=== PATIENT | male | born 1955 | race Caucasian/White ===

== ENCOUNTER 2019-09-15 18:40 | Observation (INO) | payer OTHER ==
[2019-09-15] MEDS ORDERED: SODIUM CHLORIDE 0.9% 1000ML 1,000 ML IVS ONE ×2 (18:54→20:53)
[2019-09-15] MEDS ORDERED: PROMETHAZINE HCL INJ 25 MG in SODIUM CHLORIDE 0.9% 50ML 50 ML IVPB ONE (19:03)
[2019-09-15] MEDS ORDERED: methylPREDNISolone SODIUM SUC 125 MG/2 ML VIAL IV ONE (19:03)
[2019-09-15] MEDS ORDERED: PANTOPRAZOLE SODIUM IV 40 MG VIAL IV ONE (19:04)
[2019-09-15] MEDS ORDERED: PROMETHAZINE HCL INJ 25 MG/ML VIAL ONE (19:17)
[2019-09-15] MEDS ORDERED: SODIUM CHLORIDE 0.9% 50ML 50 ML ONE (19:17)
[2019-09-15] MEDS ORDERED: SUCRALFATE 1 GM/10 ML 1 GM UD PO ONE (20:12)
[2019-09-15] MEDS ORDERED: ALUMINUM & MAGNESIUM HYDROXIDE 30 ML UD PO ONE (20:12)
--- NOTE | 2019-09-15 20:14 | RAD ---
EXAM DESCRIPTION: Abdomen Flat Upright CLINICAL HISTORY: 64 years Male ,lung cancer, [place] COMPARISON: None. TECHNIQUE: Single view of the abdomen was provided.. FINDINGS:No free air. Moderate fecal material in the colon. No dilated loops of bowel to suggest obstruction. No abnormal calcifications noted. IMPRESSION: No acute plain film abnormality is identified. Electronically signed by: Jovana Olguin MD 09/15/2019 8:13 PM JACK PRIZER
--- NOTE | 2019-09-15 20:16 | RAD ---
EXAM DESCRIPTION: Chest,2 Views CLINICAL HISTORY: 64 years Male lung cancer, [place] COMPARISON: 09/10/2012 FINDINGS: Heart size appears within normal limits. Mildly prominent pulmonary arteries. Prominent soft tissue in the right inferior hilar region which appears similar to the previous exam. Small focus of calcification in the lateral left lung base. PICC line on the right with the tip in the SVC. Prominent costochondral cartilage calcification bilaterally. IMPRESSION: Prominent right hilum which appears unchanged when compared to the examination from 2012 No acute infiltrate noted Electronically signed by: Jovana Olguin MD 09/15/2019 8:14 PM TITLE CLOSER
[2019-09-15] MEDS ORDERED: ONDANSETRON INJ 4 MG/2 ML VIAL IV ONE (20:54)
--- NOTE | 2019-09-15 21:06 | ED.PDOC ---
History of Present Illness - General Chief Complaint: GI Problem Stated Complaint: N/V weakeness poss r/t chemo Time Seen by Provider: 09/15/19 18:42 Source: patient Exam Limitations: no limitations - History of Present Illness Initial Comments: The patient is a 64-year-old male presenting to the emergency room secondary to nausea and vomiting since he completed his last round of chemotherapy around Monday. He has had essentially no food that he has been able to hold down some liquids. He has had a history of significant gastritis. He does normally take famotidine. He is supposed to be taking prednisone but he reports that he has not taken any since he got done with chemotherapy. He is uncertain what the 3 drug therapy was that he had. No fevers. No cough. No sore throat. No new shortness of breath. No real focal abdominal pain. Just cramping. He has been passing gas and a little bit of stool. He is a type II diabetic but not insulin-dependent. He is feeling weak and tired and dehydrated. He does get dizzy with standing.he does take eliquis for a pulmonary embolus. he has vomited a small amount of brown material. No leslie blood.the patient has not vomited since his arrival here. Timing/Duration: other - 4 days Severity: moderate Improving Factors: nothing Worsening Factors: immobilization Associated Symptoms: loss of appetite, malaise, nausea/vomiting, weakness Allergies/Adverse Reactions: Allergies Codeine Allergy (Verified 09/11/12 07:11) Home Medications: Ambulatory Orders Metformin HCl 1,000 mg PO BID 09/11/12 Albuterol Sulfate [Albuterol Sulfate Hfa] 1 puff INH Q4HR PRN 09/15/19 Apixaban [Eliquis Starter Pack] 5 mg PO DAILY 09/15/19 Atorvastatin Calcium 40 mg PO DAILY 09/15/19 Famotidine 20 mg PO BID 09/15/19 Gabapentin [Neurontin] 300 mg PO TID 09/15/19 Guaifenesin [Mucus Relief] 400 mg PO TID 09/15/19 Lisinopril 5 mg PO DAILY 09/15/19 Olanzapine 5 mg PO BEDTIME PRN 09/15/19 Sertraline HCl [Zoloft] 100 mg PO DAILY 09/15/19 Tamsulosin [Flomax] 0.4 mg PO QD 09/15/19 Tramadol HCl 50 mg PO Q6HR PRN 09/15/19 Review of Systems - Review of Systems Constitutional: States: malaise, weakness EENTM: States: no symptoms reported Respiratory: States: no symptoms reported Cardiology: States: no symptoms reported Gastrointestinal/Abdominal: States: nausea, vomiting Genitourinary: States: no symptoms reported Musculoskeletal: States: no symptoms reported Skin: States: no symptoms reported Neurological: States: no symptoms reported Endocrine: States: increased thirst Hematologic/Lymphatic: States: no symptoms reported All other Systems: No Change from Baseline Past Medical History (General) - Patient Medical History Hx Stroke: No Hx of COPD: Yes Hx Cardiac Disorders: No Hx Congestive Heart Failure: No Hx Hypertension: No Hx Diabetes: No Hx Cancer: Yes - Stage IV lung Hx MRSA: No Surgical History: other - Vaccination History Hx Influenza Vaccination: Yes Hx Pneumococcal Vaccination: No - Social History Hx Tobacco Use: Yes Hx Alcohol Use: No Hx Substance Use: No Hx Substance Use Treatment: No Hx Depression: No - Female History Patient is a Female of Child Bearing Age (10 -59 yrs old): No Patient : No Family Medical History - Family History Mother Family History: Unknown Living Status: Unknown Physical Exam - Physical Exam General Appearance: Alert, Frail, Ill Appearing Eye Exam: bilateral normal Ears, Nose, Throat: hearing grossly normal, normal pharynx, other - mucous membranes are fairly dry Neck: full range of motion, supple Respiratory: lungs clear, normal breath sounds, no respiratory distress, no accessory muscle use Cardiovascular/Chest: normal peripheral pulses, regular rate, rhythm, no edema Peripheral Pulses: radial,right: 2+, radial,left: 2+ Gastrointestinal/Abdominal: non tender - no rebound or peritoneal signs. 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, alert, normal mood/affect, oriented x 3 Skin Exam: normal color Comments: Vital Signs - 24 hr 09/15/19 09/15/19 09/15/19 18:40 18:41 19:31 Temperature 97.5 F L Pulse Rate [R 94 H 94 H 92 H finger] Respiratory 22 22 Rate Blood Pressure 139/92 135/82 [L arm] O2 Sat by Pulse 97 Oximetry 09/15/19 09/15/19 20:00 20:30 Temperature Pulse Rate [R 84 78 finger] Respiratory 18 Rate Blood Pressure 139/80 139/87 [L arm] O2 Sat by Pulse 97 94 L Oximetry Progress - Progress Progress: 09/15/19 21:09 the patient's 64-year-old male presenting to the emergency room secondary to nausea and vomiting since completing his last chemotherapy round on Monday. The patient was apparently supposed to be taking prednisone but has not been doing that. He was given a dose of Solu-Medrol here. He is a diabetic so his blood sugars will need to be watched. The patient does have some significant dehydration and has been given a liter of IV fluids and has been started on maintenance fluids. Electrolytes look to be in good order at this point in time. The patient has been started on GI medications including Maalox, Carafate, Protonix, Phenergan, Zofran. He will need to be continued on several of these to allow for improvement of what is no doubt significant stomach and duodenal inflammation at this time. The patient does take Eliquis for a pulmonary embolus which will have to be continued. no evidence of leslie bleeding at this time however this may make calming the stomach down more difficult. the patient appears to be tolerating small fluid challenges well at this time. Admit for continued care. - Results/Orders Results/Orders: 09/15/19 19:02 Telemetry .CONTINUOUS UA [URINALYSIS] Stat 09/15/19 19:03 EKG Assessment ONCE EKG shows normal sinus rhythm at 82 bpm. Poor R progression in anterior leads. No definitive ST segment or T-wave changes indicative of acute ischemia. Mild right axis deviation. Normal QT interval. Chest x-ray shows chronic changes. No overt pneumonia. No pneumothorax. No fluid overload. Two-view abdomen shows moderate amount of stool in colon. No obstruction. No obvious perforation. Laboratory Results - last 24 hr 09/15/19 09/15/19 09/15/19 19:18 19:18 19:18 WBC 8.8 RBC 4.79 Hgb 13.8 L Hct 41.6 L MCV 86.7 MCH 28.8 MCHC 33.3 RDW 16.8 H Plt Count 147 MPV 7.5 Absolute Neuts (auto) 7.00 H Absolute Lymphs (auto) 1.50 Absolute Monos (auto) 0.00 L Absolute Eos (auto) 0.10 Absolute Basos (auto) 0.10 Neutrophils % 79.4 H Lymphocytes % 17.5 L Monocytes % 0.4 L Eosinophils % 1.7 Basophils % 1.0 PT 9.9 INR 1.00 PTT (SP) 19.7 L Sodium 137 Potassium 4.3 Chloride 102 Carbon Dioxide 24 Anion Gap 15.3 BUN 43 H Creatinine 1.25 BUN/Creatinine Ratio 34.4 H Random Glucose 210 H Serum Osmolality 290.8 Lactic Acid Calcium 9.6 Magnesium 2.1 Total Bilirubin 0.8 AST 14 ALT 11 Alkaline Phosphatase 68 Creatine Kinase 26 L CK-MB (CK-2) 0.7 CK-MB (CK-2) % Not Reportable Troponin I < 0.02 B-Natriuretic Peptide 8.7 Serum Total Protein 7.3 Albumin 3.7 Globulin 3.6 H Albumin/Globulin Ratio 1.0 L Amylase 75 Lipase 32 09/15/19 19:18 WBC RBC Hgb Hct MCV MCH MCHC RDW Plt Count MPV Absolute Neuts (auto) Absolute Lymphs (auto) Absolute Monos (auto) Absolute Eos (auto) Absolute Basos (auto) Neutrophils % Lymphocytes % Monocytes % Eosinophils % Basophils % PT INR PTT (SP) Sodium Potassium Chloride Carbon Dioxide Anion Gap BUN Creatinine BUN/Creatinine Ratio Random Glucose Serum Osmolality Lactic Acid 1.0 Calcium Magnesium Total Bilirubin AST ALT Alkaline Phosphatase Creatine Kinase CK-MB (CK-2) CK-MB (CK-2) % Troponin I B-Natriuretic Peptide Serum Total Protein Albumin Globulin Albumin/Globulin Ratio Amylase Lipase Departure - Departure Clinical Impression: Dehydration Chemotherapy adverse reaction Qualifiers: Encounter type: initial encounter Qualified Code(s): T45.1X5A - Adverse effect of antineoplastic and immunosuppressive drugs, initial encounter Gastritis Qualifiers: Gastritis type: unspecified gastritis Chronicity: acute Gastritis bleeding: without bleeding Qualified Code(s): K29.00 - Acute gastritis without bleeding Disposition: Admit Patient Departure Forms: ED Discharge - Pt. Copy, Patient Portal Self Enrollment Referrals: Twin Gay MD [Primary Care Provider] - 1-2 Weeks Home Medications: Ambulatory Orders Metformin HCl 1,000 mg PO BID 09/11/12 Albuterol Sulfate [Albuterol Sulfate Hfa] 1 puff INH Q4HR PRN 09/15/19 Apixaban [Eliquis Starter Pack] 5 mg PO DAILY 09/15/19 Atorvastatin Calcium 40 mg PO DAILY 09/15/19 Famotidine 20 mg PO BID 09/15/19 Gabapentin [Neurontin] 300 mg PO TID 09/15/19 Guaifenesin [Mucus Relief] 400 mg PO TID 09/15/19 Lisinopril 5 mg PO DAILY 09/15/19 Olanzapine 5 mg PO BEDTIME PRN 09/15/19 Sertraline HCl [Zoloft] 100 mg PO DAILY 09/15/19 Tamsulosin [Flomax] 0.4 mg PO QD 09/15/19 Tramadol HCl 50 mg PO Q6HR PRN 09/15/19 Decision To Admit - Decistion To Admit Decision to Admit Reason: Medical Nature Decision to Admit Date: 09/15/19 Decision to Admit Time: 21:13
[2019-09-15] MEDS ORDERED: FOLIC ACID INJ 5 MG/ML VIAL IV ONE (21:16)
--- NOTE | 2019-09-15 21:16 | HP ---
SUPERVISING PHYSICIAN: Vick Barnes MD CHIEF COMPLAINT: Nausea and weakness due to chemotherapy. HISTORY OF PRESENT ILLNESS: Mr. Harper is a 64-year-old male patient who presented to the Emergency Room with a history of Stage 4 small cell lung cancer with persistent nausea and vomiting since last Monday after finishing a round of chemo. He endorses that he has not been able to hold any oral intake down other than some small doses of liquids. He does have a significant history of gastritis and has been taking famotidine. He is also on prednisone, but reports he has not been able to keep any down since chemotherapy. He is unsure of his actual chemo drugs, but notes he is on three different chemo medications. He denies any fevers, cough, sore throat, shortness of breath or abdominal pain. He is a type 2 diabetic, non-insulin dependent. He notes he is feeling weak, tired and very dehydrated. He does get dizzy when he stands up. He is on Eliquis for pulmonary embolisms and has had frequent vomiting, but no leslie blood. Laboratory studies show his admission white count is 8,800 with hemoglobin 13.8, hematocrit 41.6, platelet count 147,000. Differential shows a left shift. Coagulation studies show PT 9.9, PTT 19.7 but he is on Eliquis. His initial chemistries on admission showed normal electrolytes with BUN 43, creatinine 1.25, glucose 210, serum osmolality 290, lactic acid 1, calcium 9.6. Liver functions within normal limits. Troponin and BNP were within normal limits. Amylase and lipase within normal limits. Urinalysis showed just 500 glucose, otherwise within normal limits. Microbiology showed influenza A and B by PCR was negative. Blood cultures negative. Initial vital signs in the Emergency Room showed he was slightly hypertensive with blood pressure 139/92, heart rate 94. He was afebrile at 97.5, O2 saturation 97%. Admission weight was 78 kg. In the Emergency Room, he was given treatment with fluids, antiemetics and a dose of Solu-Medrol 60 mg, IV Protonix and Carafate. He was placed in observation for severe dehydration and unable to hold any oral intake down due to chemotherapy. PAST MEDICAL HISTORY: 1. 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 2. Multiple pulmonary embolisms in the right lung secondary to #1. 3. Diabetes mellitus on oral therapy. 4. Gastroesophageal reflux disease with gastritis on famotidine. 5. Benign prostatic hypertrophy on Flomax. PAST SURGICAL HISTORY: 1. 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 MEDICATIONS: 1. Zoloft 100 mg daily. 2. Eliquis 5 mg daily. 3. Metformin 1000 mg b.i.d. 4. Neurontin 300 mg t.i.d. 5. Famotidine 20 mg b.i.d. 6. Atorvastatin 40 mg daily. 7. Olanzapine 5 mg at bedtime as needed. 8. Lisinopril 5 mg daily. 9. Guaifenesin 400 mg t.i.d. 10. Tramadol 50 mg q.6h. as needed. 11. Flomax 0.4 mg. 12. Albuterol handheld inhaler as needed q.4h. ALLERGIES: CODEINE. FAMILY HISTORY: Mother at age 54 with complications from diabetes. Father at age 63 with prostate cancer. He has a twin sister at age 38 with breast cancer. He has one brother at age 50 with kidney sister. Another sister at age 62 with a brain aneurysm. He has three children that are all healthy. SOCIAL HISTORY: The patient was a tobacco smoker in the form of cigarettes smoking 1-1/2 packs a day for 40 years. He does not drink alcohol. 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 He lives in [place] and is . REVIEW OF SYSTEMS: CONSTITUTIONAL: Positive for general malaise, weakness. Denies fevers, rigors or chills. No reported significant weight loss. HEENT: Negative for sore throats, headaches, earaches, nasal congestion, vision changes. RESPIRATORY: Denies coughing, wheezing, shortness of breath. CARDIOVASCULAR: Negative for chest pain, palpitations or syncopal episodes. GASTROINTESTINAL: Denies any abdominal pain, but positive for nausea and vomiting. Negative for diarrhea. GENITOURINARY: Negative for dysuria, hematuria, polyuria. MUSCULOSKELETAL: Denies arthralgias or joint swelling. SKIN: Negative for lesions, rashes, moles or unexplained changes. NEUROLOGIC: Negative for headaches, vision changes, ataxia, seizures or other focal neurological deficits. HEMATOLOGIC: Denies easy bruising, unexplained bleeding or transfusion reaction. PHYSICAL EXAMINATION: VITAL SIGNS: Temperature 97.5. Pulse 94. Blood pressure 139/92. Respirations 20. Saturation 97% on room air. Admission weight 78 kg. GENERAL: The patient does appear generally unwell, tired, frail. He is alert and appears to be in no acute distress. HEENT: Tympanic membranes clear bilaterally. Oropharynx is pink with significantly dry murmurs. NECK: Supple, nontender with full range of motion. No jugular venous distention noted. RESPIRATORY: Lungs clear to auscultation bilaterally without any obvious rhonchi, wheezes or rales. CARDIOVASCULAR: Regular rate and rhythm without any appreciable murmurs, gallops, or rubs. ABDOMEN: Soft, nontender. No rebound. No peritoneal signs. Positive bowel sounds. RECTAL: Deferred. EXTREMITIES: There is no cyanosis, clubbing or edema. NEUROLOGIC: The patient is alert and oriented times three. Cranial nerves II- XII are grossly intact. Facial features are symmetrical. Extraocular movements are within normal limits. There is no nystagmus noted. LABORATORY: CBC showed white count 8,800, hemoglobin 13.8, hematocrit 41.6, platelet count 147,000. Differential does show a left shift. Chemistries showed normal electrolytes. Initial creatinine was 1.25, BUN 43, blood sugar 210, calcium 9.6, magnesium 2.1. Liver functions all within normal limits. BNP and troponin were normal as well as amylase and lipase. Urinalysis shows 500 glucose. MICROBIOLOGY: Influenza A and B negative by PCR. Blood cultures pending. RADIOLOGY: Abdominal x-ray in the Emergency Room per radiologic interpretation showed no acute abnormalities on plain film. Chest x-ray per radiologic interpretation showed prominent right hilum which appears unchanged when compared to exam from 2013. No acute infiltrate was noted. ASSESSMENT: 1. Severe dehydration with nausea and vomiting secondary to chemotherapy. 2. 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 3. Pulmonary embolism, right lung, secondary to #2. 4. Diabetes mellitus on oral therapy. 5. History of gastritis and gastroesophageal reflux disease. PLAN: Mr. Harper will be placed in observation to assist with hydration therapy. The plan will be hopefully to be able to discharge within the next 24 or 48 hours. He will need to at least have adequate oral intake to stay hydrated in the form of liquids and nutrition to maintain stable blood sugars. We will provide Phenergan and Zofran as needed for antiemetics. I will give him a bolus of half normal saline followed MVI bag and then will reassess labs in the morning. He will be on sliding scale per insulin protocol. He is on DVT prophylaxis already with Eliquis. I anticipate his length of stay to be at least one to two days and will hopefully be able to discharge tomorrow. Until then, we will continue to monitor and treat as needed. #[id number] MTDD
[2019-09-15] MEDS ORDERED: SODIUM CHLORIDE 0.9% (FLUSH) 10 ML SYG IV PRN (21:56)
[2019-09-15] MEDS ORDERED: IV SET AND CAP CHANGE INJ INJ SCH (22:00)
[2019-09-16] MEDS: SODIUM CHLORIDE 0.45% 1000ML 1,000 ML IVS PRN ×2 (02:01→10:27)
[2019-09-16] MEDS ORDERED: PROMETHAZINE HCL INJ 25 MG/ML VIAL ONE ×3 (04:22→19:41)
[2019-09-16] MEDS ORDERED: SODIUM CHLORIDE 0.9% 50ML 50 ML ONE ×3 (04:22→19:41)
[2019-09-16] MEDS: PROMETHAZINE HCL INJ 25 MG in SODIUM CHLORIDE 0.9% 50ML 50 ML IVPB PRN ×3 (04:26→19:44)
[2019-09-16] MEDS ORDERED: SERTRALINE HCL 50 MG TAB ONE (08:27)
[2019-09-16] MEDS: ONDANSETRON INJ 4 MG/2 ML VIAL IV PRN ×2 (08:59→17:40)
[2019-09-16] MEDS: SODIUM CHLORIDE 0.9% (FLUSH) 10 ML SYG IV SCH ×2 (09:00→20:52)
[2019-09-16] MEDS: guaiFENesin ER TAB 600 MG TAB PO SCH ×2 (09:10→20:52)
[2019-09-16] MEDS: APIXABAN 5 MG TAB PO SCH (09:11)
[2019-09-16] MEDS: GABAPENTIN 300 MG CAP PO SCH ×3 (09:11→20:52)
[2019-09-16] MEDS: FAMOTIDINE 20 MG TAB PO SCH ×2 (09:11→20:52)
[2019-09-16] MEDS: SERTRALINE HCL 50 MG TAB PO SCH (09:11)
[2019-09-16] MEDS: LISINOPRIL 5 MG TAB PO SCH (09:11)
[2019-09-16] MEDS: metFORMIN HCL 500 MG TAB PO SCH ×2 (09:11→17:37)
[2019-09-16] MEDS: TAMSULOSIN 0.4 MG CAP PO SCH (10:05)
[2019-09-16] MEDS ORDERED: GLUCAGON INJ 1 MG VIAL SUBCU PRN (11:01)
[2019-09-16] MEDS ORDERED: DEXTROSE 10% 500ML IVPB PRN (11:01)
[2019-09-16] MEDS ORDERED: SODIUM CHLORIDE 0.9% 1000ML 1,000 ML ONE (11:26)
[2019-09-16] MEDS ORDERED: MULTIPLE VITAMIN 10 ML VIAL ONE (11:27)
[2019-09-16] MEDS: MULTIPLE VITAMIN INJ 10 ML, FOLIC ACID INJ 1 MG in SODIUM CHLORIDE 0.9% 1000ML 1,000 ML IVS SCH (11:37)
[2019-09-16] MEDS: INSULIN LISPRO 100 UNITS/ML PEN SUBCU SCH ×3 (11:45→20:50)
[2019-09-16] MEDS: ALBUTEROL SULFATE 2.5 MG/3 ML VIAL NEB SCH ×3 (12:33→20:02)
[2019-09-16] MEDS ORDERED: LACTATED RINGERS 1,000 ML IVS ONE (17:13)
[2019-09-16] MEDS ORDERED: HYDROmorphone HCL INJ 2 MG/ML VIAL IV ONE (18:31)
[2019-09-16] MEDS ORDERED: ALUM & MAG HYDROX-SIMETHICONE 30 ML, LIDOCAINE VISCOUS 2% 15 ML PO ONE ×2 (18:31)
[2019-09-16] MEDS ORDERED: KCL 20 MEQ/NS 1,000 ML IVS PRN (18:31)
[2019-09-16] MEDS ORDERED: ALUMINUM & MAGNESIUM HYDROXIDE 30 ML UD ONE (19:02)
[2019-09-16] MEDS ORDERED: LIDOCAINE HCL 2% (MOUTH-THROAT) 15 ML UD ONE (19:03)
[2019-09-16] MEDS ORDERED: KCL 20MEQ/D5NS 1,000 ML IVS ONE (20:45)
[2019-09-16] MEDS: KCL 20MEQ/D5NS 1,000 ML IVS PRN (20:50)
[2019-09-16] MEDS ORDERED: ATORVASTATIN 20 MG TAB PO SCH (21:00)
[2019-09-16] MEDS: MORPHINE SULFATE INJ 10 MG/ML VIAL IV PRN (23:32)
[2019-09-17] MEDS: KCL 20MEQ/D5NS 1,000 ML IVS PRN (03:21)
[2019-09-17] MEDS ORDERED: SODIUM CHLORIDE 0.9% 50ML 50 ML ONE (05:35)
[2019-09-17] MEDS ORDERED: PROMETHAZINE HCL INJ 25 MG/ML VIAL ONE (05:35)
[2019-09-17] MEDS: MORPHINE SULFATE INJ 10 MG/ML VIAL IV PRN (05:38)
[2019-09-17] MEDS: PROMETHAZINE HCL INJ 25 MG in SODIUM CHLORIDE 0.9% 50ML 50 ML IVPB PRN (05:39)
[2019-09-17] MEDS: metFORMIN HCL 500 MG TAB PO SCH (07:20)
[2019-09-17] MEDS: ONDANSETRON INJ 4 MG/2 ML VIAL IV PRN (07:20)
[2019-09-17] MEDS: INSULIN LISPRO 100 UNITS/ML PEN SUBCU SCH ×2 (07:20→13:39)
[2019-09-17] MEDS: ALBUTEROL SULFATE 2.5 MG/3 ML VIAL NEB SCH ×2 (07:57→12:38)
[2019-09-17] MEDS: SERTRALINE HCL 50 MG TAB PO SCH (08:08)
[2019-09-17] MEDS: TAMSULOSIN 0.4 MG CAP PO SCH (08:08)
[2019-09-17] MEDS: APIXABAN 5 MG TAB PO SCH (08:08)
[2019-09-17] MEDS: GABAPENTIN 300 MG CAP PO SCH (08:08)
[2019-09-17] MEDS: LISINOPRIL 5 MG TAB PO SCH (08:08)
[2019-09-17] MEDS: guaiFENesin ER TAB 600 MG TAB PO SCH (08:08)
[2019-09-17] MEDS: FAMOTIDINE 20 MG TAB PO SCH (08:08)
[2019-09-17] MEDS: SODIUM CHLORIDE 0.9% (FLUSH) 10 ML SYG IV SCH (08:08)
[2019-09-17] MEDS ORDERED: KETOROLAC TROMETHAMINE INJ 30 MG/ML VIAL IV ONE (09:18)
--- NOTE | 2019-09-17 09:28 | PN ---
SUPERVISING PHYSICIAN: Vick Barnes MD DATE: 09/16/2019 SUBJECTIVE: The patient continues to have nausea with vomiting despite Zofran. We discussed using Phenergan. She is still not able to take any oral hydration. He does not complain of any abdominal pain, chest pain and he has not been febrile. His urine output has not been satisfactory to indicate that he is hydrated at this point. OBJECTIVE: VITAL SIGNS: Temperature 98. Pulse 76. Blood pressure 136/77. Respirations 18. Saturation 79% on room air. GENERAL: The patient does appear unwell, tired and not in any obvious distress. CHEST: Lungs are clear to auscultation. HEART: Regular rate and rhythm. ABDOMEN: Soft, nontender. Positive bowel sounds. EXTREMITIES: No edema. NEUROLOGIC: Alert and oriented times three. LABORATORY: White count 7,300, hemoglobin 11.5, hematocrit 35.0, platelet count 137,000. Differential does show a left shift. Chemistries show sodium 134, potassium 4, BUN 31, creatinine 1.12 after a second liter of fluids. Before that, his creatinine was 1.32 and BUN 40. Blood sugars are fairly stable between 126 and 139. Liver functions continue to be within normal limits. MICROBIOLOGY: Blood cultures remain negative. RADIOLOGY: No additional radiographic studies. ASSESSMENT: 1. Severe dehydration with nausea and vomiting secondary to chemotherapy. 2. 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 3. Pulmonary embolism, right lung, secondary to #2. 4. Diabetes mellitus on oral therapy. 5. History of gastritis and gastroesophageal reflux disease. PLAN: We will continue with current plan of care at this point given that he does have continued nausea and vomiting and is not able to take any hydration therapy orally. I will go ahead and give him a liter of half normal saline bolus and follow up with multivitamin infusion with folic acid at 150 an hour and then we will readdress with BMP and assess his hydration status at that point and address fluids. We will provide Phenergan and Zofran again as needed for any nausea and vomiting and will control pain as needed. He is on a regular diet, but I have encouraged him to start with liquids and advance as tolerated. The hope was to discharge later today, but again he is not able to take any fluids and he is significantly dehydrated. Once he is able to tolerate oral hydration, we will discharge to continue with outpatient management. Until then, we will continue to monitor and treat as needed. #[id number] [facility]
[2019-09-17] MEDS ORDERED: LACTATED RINGERS 1,000 ML ONE (09:53)
[2019-09-17] MEDS ORDERED: LACTATED RINGERS 1,000 ML IVS ONE (09:56)
[2019-09-17] MEDS ORDERED: KCL 20MEQ/D5 1/2NS 0 ML IVS ONE (10:09)
[2019-09-17] MEDS ORDERED: SODIUM CHLORIDE 0.9% 1000ML 1,000 ML ONE (10:16)
[2019-09-17] MEDS ORDERED: MULTIPLE VITAMIN 10 ML VIAL ONE (10:23)
[2019-09-17] MEDS ORDERED: OLANZapine ODT 5 MG TAB PO PRN (10:30)
[2019-09-17] MEDS: MULTIPLE VITAMIN INJ 10 ML, FOLIC ACID INJ 1 MG in SODIUM CHLORIDE 0.9% 1000ML 1,000 ML IVS SCH (10:45)
[2019-09-17 13:51] VITALS: BP 105/64; TEMP 98.9; O2SAT 99
--- NOTE | 2019-09-17 14:55 | DS ---
SUPERVISING PHYSICIAN: Vick Barnes MD ADMISSION DIAGNOSIS: 1. Severe dehydration with nausea and vomiting secondary to chemotherapy. 2. 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 3. Pulmonary embolism, right lung, secondary to #2. 4. Diabetes mellitus on oral therapy. 5. History of gastritis and gastroesophageal reflux disease. DISCHARGE DIAGNOSIS: 1. Severe dehydration with nausea and vomiting secondary to chemotherapy with the patient having tolerated a p.o. challenge and showing good hydration status with IV fluids and able to tolerate clear liquids. 2. 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 3. Pulmonary embolism, right lung, secondary to #2. 4. Diabetes mellitus on oral therapy. 5. History of gastritis and gastroesophageal reflux disease. REASON FOR HOSPITALIZATION: Mr. Harper is a 64-year-old male patient who presented to the Emergency Room with a history of Stage 4 small cell lung cancer with persistent nausea and vomiting since last Monday after finishing a round of chemo. He endorses that he has not been able to hold any oral intake down other than some small doses of liquids. He does have a significant history of gastritis and has been taking famotidine. He is also on prednisone, but reports he has not been able to keep any down since chemotherapy. He is unsure of his actual chemo drugs, but notes he is on three different chemo medications. He denies any fevers, cough, sore throat, shortness of breath or abdominal pain. He is a type 2 diabetic, non-insulin dependent. He notes he is feeling weak, tired and very dehydrated. He does get dizzy when he stands up. He is on Eliquis for pulmonary embolisms and has had frequent vomiting, but no leslie blood. Laboratory studies show his admission white count is 8,800 with hemoglobin 13.8, hematocrit 41.6, platelet count 147,000. Differential shows a left shift. Coagulation studies show PT 9.9, PTT 19.7 but he is on Eliquis. His initial chemistries on admission showed normal electrolytes with BUN 43, creatinine 1.25, glucose 210, serum osmolality 290, lactic acid 1, calcium 9.6. Liver functions within normal limits. Troponin and BNP were within normal limits. Amylase and lipase within normal limits. Urinalysis showed just 500 glucose, otherwise within normal limits. Microbiology showed influenza A and B by PCR was negative. Blood cultures negative. Initial vital signs in the Emergency Room showed he was slightly hypertensive with blood pressure 139/92, heart rate 94. He was afebrile at 97.5, O2 saturation 97%. Admission weight was 78 kg. In the Emergency Room, he was given treatment with fluids, antiemetics and a dose of Solu-Medrol 60 mg, IV Protonix and Carafate. He was placed in observation for severe dehydration and unable to hold any oral intake down due to chemotherapy. LABORATORY: White count at discharge was 7,300, hemoglobin 11.5, hematocrit 35.0, platelet count 137,000. Differential showed a resolving left shift. Chemistries had normal with regards to electrolytes prior to discharge with potassium 4.1, sodium 135. Serum osmolality 276, blood sugars were stable between 80 and 162. BUN 22, creatinine 1.05, calcium 8.6. MICROBIOLOGY: Blood cultures were negative after 24 hours. Influenza A and B by PCR were negative. RADIOLOGY: Abdomen and chest x-ray with no acute findings. Please see those reports for details. HOSPITAL COURSE: Mr. Harper was admitted on 09/15/19 from the Emergency Room for severe dehydration. He was given multiple boluses of IV fluids including normal saline, Lactated Ringers as well as multivitamin infusion with folic acid. He was having good urine output prior to discharge. He was able to tolerate a p.o. challenge and was showing good fluid intake prior to discharge and was stable clinically to continue with outpatient management. DISCHARGE ASSESSMENT: VITAL SIGNS: Temperature 97.9. Pulse 85. Blood pressure 145/81. Respiratory rate 18. Saturation 99% on room air. GENERAL: The patient is resting comfortably. He appears to be in no acute distress and he is alert. CHEST: Lungs clear to auscultation bilaterally. HEART: Regular rate and rhythm. ABDOMEN: Soft, nontender, positive bowel sounds. EXTREMITIES: No edema. NEUROLOGIC: Alert and oriented x3. PLAN: Mr. Harper was discharged on 09/17/2019 with instructions to followup with his primary care physician in the next week, Dr. Gay, or sooner as needed. He was to resume all his medications as prior to hospitalization. He was instructed to continue his Zofran initially for his nausea and if unable to get relief, he was given a prescription for p.o. Phenergan and then if he was not able to tolerate p.o. Phenergan, he has suppositories p.r.n. He was to have a diabetic diet to advance as tolerated. Encourage fluids to prevent dehydration in the form of electrolyte replacement such as Pedialyte or Gatorade in addition to water. He is to avoid caffeinated drinks. Medications prescribed on discharge include: 1. Promethazine suppositories 12.5 mg per rectum q.4h. as needed, #4, no refills, if the patient is unable to tolerate Phenergan tablets with vomiting. 2. Phenergan tablets 25 mg q.4h. p.r.n. as needed, #12, no refills, for severe nausea. 3. Continue all previous medications including Zofran as directed, Zoloft 100 mg daily, Eliquis 5 mg daily, metformin 100 mg b.i.d., Neurontin 300 mg t.i.d., famotidine 20 mg b.i.d., atorvastatin 40 mg daily, olanzapine 5 mg at bedtime as needed, lisinopril 5 mg daily, Mucinex as needed 400 mg t.i.d., tramadol 50 mg q.6h. for pain as needed, Flomax 0.4 mg daily, albuterol handheld inhaler 1 puff q.4h. as needed for shortness of breath. CONDITION ON DISCHARGE: Stable and improved. DISPOSITION: The patient was discharged home. #[id number] [facility]
== END 2019-09-17 14:05 | disposition home or self-care (01) ==
LOC: ER 18:40 → MS 21:15
PROVIDERS: ADMIT Nurse Practitioner Family; ATTEND Nurse Practitioner Family
DX: E86.0 Dehydration (principal); T45.1X5A Adverse effect of antineoplastic and immunosuppressive drugs, initial encounter; C34.90 Malignant neoplasm of unspecified part of unspecified bronchus or lung; I26.99 Other pulmonary embolism without acute cor pulmonale; E11.9 Type 2 diabetes mellitus without complications; K29.70 Gastritis, unspecified, without bleeding; K21.9 Gastro-esophageal reflux disease without esophagitis; N40.0 Benign prostatic hyperplasia without lower urinary tract symptoms; J44.9 Chronic obstructive pulmonary disease, unspecified; Z92.21 Personal history of antineoplastic chemotherapy; Z79.84 Long term (current) use of oral hypoglycemic drugs; Z79.01 Long term (current) use of anticoagulants; Z79.899 Other long term (current) drug therapy; Z88.6 Allergy status to analgesic agent; Z87.891 Personal history of nicotine dependence; Z85.828 Personal history of other malignant neoplasm of skin; Z83.3 Family history of diabetes mellitus; Z80.42 Family history of malignant neoplasm of prostate; Z80.3 Family history of malignant neoplasm of breast
CPT/HCPCS: 96361 ×2; 96366 ×2; 96367; 96365; 96375 ×3; 96376 ×2; 96372 ×2; J7611 ×5; J1170; J1885; J2930; J2270 ×2; J2405 ×4; J2550 ×5; J7799 ×2; J7030 ×3; A4216 ×5; J3480; J1815; J7120 ×2; 80048 ×2; 82553; 80053 ×2; 82948 ×5; 36415 ×2; 82150; 81001; 85025 ×2; 82550; 87040 ×2; 83690; 83735; 85730; 85610; 84484; 83880; 36416 ×4; 83605; 74019; 71046; 94640 ×5; 94760 ×3; 99285; 93005; G0378; 87502